=== PATIENT | female | born 1980 ===

== ENCOUNTER → 2021-07-26 10:02 | Outpatient (CLI) | payer OTHER, SELFPAY ==
[2021-07-26 19:08] LABS: Add Manual Diff / Slide Review NO; Basophils Absolute Auto 0 /uL (0-100); Basophils Percent Auto 0.5 % (0-2); Eosinophils Absolute Auto 200 /uL (0-450); Eosinophils Percent Auto 3.1 % (2-4); Hematocrit 38.5 % (36-46); Hemoglobin 12.8 g/dL (12.0-16.0); Lymphocytes Absolute Auto 2100 /uL (1100-4500); Lymphocytes Percent Auto 30.5 % (25-40); Mean Corpuscular HGB Conc 33.2 % (30-36); Mean Corpuscular Hemoglobin 27.4 PG (26-34); Mean Corpuscular Volume 82.6 fL (80-100); Monocytes Absolute Auto 400 /uL (0-900); Monocytes Percent Auto 5.3 % (3-14); Neutrophils Absolute Auto 4100 /uL (1500-7000); Neutrophils Percent Auto 60.6 % (50-75); Platelet Count 369 X10^3/uL (150-400); Red Blood Cell Count 4.66 X10^6/uL (4.0-5.2); Red Cell Distribution Width 13.7 % (11.6-14.8); White Blood Cell Count 6.8 X10^3/uL (4.5-11.0)
[2021-07-26 19:32] LABS: Alanine Aminotransferase 12 IU/L (<35); Albumin 3.6 g/dL (3.5-5.0); Albumin Globulin Ratio 1.3 (1.0-2.8); Alkaline Phosphatase 93 U/L (38-126); Aspartate Aminotransferase 20 IU/L (14-36); BUN Creatinine Ratio 20.3 (6-22); Bilirubin Total 0.4 mg/dL (0.2-1.3); Blood Urea Nitrogen 13 mg/dL (7-17); Calcium 9.2 mg/dL (8.4-10.2); Carbon Dioxide 27 mmol/L (22-32); Chloride 106 mmol/L (98-107); Cholesterol 180 mg/dL (140-199); Estimated Glomerular Filt Rate > 60.0 mL/min (>60); Globulin 2.8 g/dL (1.7-4.1); Glucose 99 mg/dL (70-100); HDL Cholesterol 75 mg/dL (40-60); HEMOLYSIS < 15 (0-50); LDL Cholesterol Calculated 80 mg/dL (<100); Potassium 4.2 mmol/L (3.4-5.1); Sodium 134 mmol/L (137-145); Total Protein 6.4 g/dL (6.3-8.2); Triglycerides 127 mg/dL (35-150)
== END ==
PROVIDERS: PCP Physician Assistant; Visit Provider Physician Assistant
DX: E78.5 Hyperlipidemia, unspecified (principal); Z79.899 Other long term (current) drug therapy
CPT/HCPCS: 80053; 80061; 85025

== ENCOUNTER → 2021-08-30 13:41 | Outpatient (CLI) | payer OTHER, SELFPAY ==
[2021-08-30 19:04] LABS: Add Manual Diff / Slide Review NO; Basophils Absolute Auto 0 /uL (0-100); Basophils Percent Auto 0.6 % (0-2); Eosinophils Absolute Auto 100 /uL (0-450); Eosinophils Percent Auto 1.5 % (2-4); Hematocrit 38.2 % (36-46); Lymphocytes Absolute Auto 2900 /uL (1100-4500); Lymphocytes Percent Auto 41.4 % (25-40); Mean Corpuscular Hemoglobin 27.7 PG (26-34); Mean Corpuscular Volume 81.4 fL (80-100); Monocytes Absolute Auto 300 /uL (0-900); Monocytes Percent Auto 4.3 % (3-14); Neutrophils Absolute Auto 3600 /uL (1500-7000); Neutrophils Percent Auto 52.2 % (50-75); Platelet Count 369 X10^3/uL (150-400); Red Blood Cell Count 4.69 X10^6/uL (4.0-5.2); Red Cell Distribution Width 13.1 % (11.6-14.8)
[2021-08-30 19:25] LABS: Alanine Aminotransferase 16 IU/L (<35); Albumin 3.9 g/dL (3.5-5.0); Albumin Globulin Ratio 1.3 (1.0-2.8); Alkaline Phosphatase 94 U/L (38-126); Aspartate Aminotransferase 22 IU/L (14-36); BUN Creatinine Ratio 18.3 (6-22); Bilirubin Total 0.2 mg/dL (0.2-1.3); Blood Urea Nitrogen 13 mg/dL (7-17); C-Reactive Protein Quant 1.5 mg/dL (<1.0); Calcium 9.5 mg/dL (8.4-10.2); Carbon Dioxide 24 mmol/L (22-32); Chloride 105 mmol/L (98-107); Estimated Glomerular Filt Rate > 60.0 mL/min (>60); Globulin 2.9 g/dL (1.7-4.1); Glucose 108 mg/dL (70-100); HEMOLYSIS < 15 (0-50); Potassium 4.2 mmol/L (3.4-5.1); Sodium 137 mmol/L (137-145); Total Protein 6.8 g/dL (6.3-8.2)
[2021-08-30 19:27] LABS: Protein (Total) Urine Random < 5 mg/dL (0-12)
[2021-08-30 19:28] LABS: Rheumatoid Factor < 8.6 IU/mL (<12.0)
[2021-08-30 19:35] LABS: Appearance Urine UA CLEAR; Bilirubin Urine UA NEGATIVE (NEGATIVE); Color Urine UA YELLOW; Glucose Urine UA NEGATIVE (Negative); Ketones Urine UA NEGATIVE (NEGATIVE); Leukocyte Esterase Urine UA NEGATIVE (NEGATIVE); Nitrite Urine UA NEGATIVE (Negative); Occult Blood Urine UA 1+ (Negative); Protein Urine UA NEGATIVE (Negative); Urobilinogen Urine UA 0.2 E.U./dL (0.2)
[2021-08-30 19:38] LABS: pH Urine UA 5.5 (4.5-8.0)
[2021-08-30 19:40] LABS: HCG Quantitative /Beta subunit < 2.4 mIU/mL
[2021-08-30 19:59] LABS: Erythrocyte Sedimentation Rate 17 MM/HR (0-20)
[2021-08-30 20:00] LABS: RBC Urine 1-5/HPF (0-5/HPF)
[2021-08-30 20:01] LABS: Bacteria Urine Few (2-10); Culture Indicated Urine Specimen Cultured; Squamous Epithelial Cell Urine 0-1 /HPF (0-5/HPF); WBC Urine 0-1/HPF (0-5/HPF)
[2021-08-30 20:04] LABS: Hep C Virus Ab w/Reflex Quant NEGATIVE s/c (NEGATIVE); Hepatitis B Surface Antigen NEGATIVE s/c (NEGATIVE)
[2021-09-01 10:04] LABS: QuantiFERON Mitogen Value >10.00 IU/mL (.); QuantiFERON Nil Value 0.01 IU/mL (.); QuantiFERON TB Gold Plus Negative (Negative); QuantiFERON TB1 Ag Value 0.02 IU/mL (.); QuantiFERON TB2 Ag Value 0.01 IU/mL (.)
[2021-09-02 12:36] LABS: Alpha-1 Globulin, Ur 7.4 % (.); Beta Globulin, Ur 37.4 % (.); Gamma Globulin, Ur 19.6 % (.); M-Spike % Not Observed % (Not Observed); Urine Total Protein 4.1 mg/dL (Not Estab.)
[2021-09-02 14:13] LABS: Albumin 3.4 g/dL (2.9-4.4); Alpha-1-Globulin 0.2 g/dL (0.0-0.4); Alpha-2-Globulin 0.8 g/dL (0.4-1.0); Gamma Globulin 1.1 g/dL (0.4-1.8); Globulin Total 3.3 g/dL (2.2-3.9); Protein, Total 6.7 g/dL (6.0-8.5)
[2021-09-02 21:15] LABS: CCP Antibodies IgG/IgA 2 units (0-19)
[2021-09-06 13:10] LABS: Antimyeloperoxidase AB <9.0 U/mL (0.0-9.0); Antiproteinase 3 AB <3.5 U/mL (0.0-3.5); Atypical P-ANCA Titer <1:20 titer (Neg:<1:20); C-ANCA Titer <1:20 titer (Neg:<1:20); P-ANCA Titer <1:20 titer (Neg:<1:20)
== END ==
PROVIDERS: PCP Physician Assistant; Visit Provider Nurse Practitioner
DX: M06.4 Inflammatory polyarthropathy (principal)
CPT/HCPCS: 80053; 81001; 83520; 84155; 84156; 84165; 84166; 84550; 84702; 85025; 85651; 86038; 86140; 86200; 86256; 86430; 86480; 86803; 87086; 87340

== ENCOUNTER → 2021-12-30 12:05 | Outpatient (CLI) | payer OTHER, SELFPAY ==
[2021-12-30 20:15] LABS: Add Manual Diff / Slide Review NO; Basophils Absolute Auto 100 /uL (0-100); Basophils Percent Auto 0.6 % (0-2); Eosinophils Absolute Auto 100 /uL (0-450); Eosinophils Percent Auto 1.5 % (2-4); Hematocrit 40.6 % (36-46); Hemoglobin 13.6 g/dL (12.0-16.0); Lymphocytes Absolute Auto 3500 /uL (1100-4500); Lymphocytes Percent Auto 39.2 % (25-40); Mean Corpuscular HGB Conc 33.6 % (30-36); Mean Corpuscular Hemoglobin 27.7 PG (26-34); Mean Corpuscular Volume 82.5 fL (80-100); Monocytes Absolute Auto 500 /uL (0-900); Neutrophils Absolute Auto 4800 /uL (1500-7000); Neutrophils Percent Auto 52.7 % (50-75); Platelet Count 407 X10^3/uL (150-400); Red Blood Cell Count 4.92 X10^6/uL (4.0-5.2); Red Cell Distribution Width 13.5 % (11.6-14.8)
[2021-12-30 20:35] LABS: Alanine Aminotransferase 14 IU/L (<35); Albumin 4.1 g/dL (3.5-5.0); Albumin Globulin Ratio 1.4 (1.0-2.8); Alkaline Phosphatase 108 U/L (38-126); Aspartate Aminotransferase 21 IU/L (14-36); BUN Creatinine Ratio 17.1 (6-22); Bilirubin Total 0.3 mg/dL (0.2-1.3); Blood Urea Nitrogen 13 mg/dL (7-17); C-Reactive Protein Quant 2.1 mg/dL (<1.0); Calcium 9.2 mg/dL (8.4-10.2); Carbon Dioxide 25 mmol/L (22-32); Chloride 106 mmol/L (98-107); Estimated Glomerular Filt Rate > 60 mL/min (>60); Glucose 87 mg/dL (70-100); HEMOLYSIS < 15 (0-50); Potassium 4.7 mmol/L (3.4-5.1); Sodium 136 mmol/L (137-145); Total Protein 7.1 g/dL (6.3-8.2)
[2021-12-30 20:53] LABS: Erythrocyte Sedimentation Rate 17 MM/HR (0-20)
== END ==
PROVIDERS: PCP Physician Assistant; Visit Provider Internal Medicine Rheumatology
DX: H20.9 Unspecified iridocyclitis (principal); Z79.899 Other long term (current) drug therapy
CPT/HCPCS: 80053; 85025; 85651; 86140

== ENCOUNTER → 2022-04-05 15:08 | Outpatient (CLI) | payer OTHER, SELFPAY ==
[2022-04-05 19:41] LABS: Add Manual Diff / Slide Review NO; Basophils Absolute Auto 100 /uL (0-100); Basophils Percent Auto 0.6 % (0-2); Eosinophils Absolute Auto 100 /uL (0-450); Eosinophils Percent Auto 1.1 % (2-4); Hematocrit 37.9 % (36-46); Hemoglobin 12.8 g/dL (12.0-16.0); Lymphocytes Absolute Auto 3000 /uL (1100-4500); Lymphocytes Percent Auto 37.2 % (25-40); Mean Corpuscular HGB Conc 33.8 % (30-36); Mean Corpuscular Hemoglobin 27.5 PG (26-34); Mean Corpuscular Volume 81.5 fL (80-100); Monocytes Absolute Auto 400 /uL (0-900); Monocytes Percent Auto 5.5 % (3-14); Neutrophils Absolute Auto 4500 /uL (1500-7000); Neutrophils Percent Auto 55.6 % (50-75); Platelet Count 333 X10^3/uL (150-400); Red Blood Cell Count 4.65 X10^6/uL (4.0-5.2); Red Cell Distribution Width 12.8 % (11.6-14.8); White Blood Cell Count 8.1 X10^3/uL (4.5-11.0)
[2022-04-05 20:02] LABS: Alanine Aminotransferase 13 IU/L (<35); Albumin 3.7 g/dL (3.5-5.0); Albumin Globulin Ratio 1.3 (1.0-2.8); Alkaline Phosphatase 108 U/L (38-126); Aspartate Aminotransferase 20 IU/L (14-36); BUN Creatinine Ratio 12.8 (6-22); Bilirubin Total 0.3 mg/dL (0.2-1.3); Blood Urea Nitrogen 10 mg/dL (7-17); C-Reactive Protein Quant 2.6 mg/dL (<1.0); Carbon Dioxide 24 mmol/L (22-32); Chloride 105 mmol/L (98-107); Estimated Glomerular Filt Rate > 60 mL/min (>60); Globulin 2.9 g/dL (1.7-4.1); Glucose 94 mg/dL (70-100); HEMOLYSIS < 15 (0-50); Potassium 4.2 mmol/L (3.4-5.1); Sodium 135 mmol/L (137-145); Total Protein 6.6 g/dL (6.3-8.2)
[2022-04-05 20:05] LABS: Erythrocyte Sedimentation Rate 9 MM/HR (0-20)
== END ==
PROVIDERS: Referring Provider Nurse Practitioner; Visit Provider Nurse Practitioner
DX: H20.9 Unspecified iridocyclitis (principal)
CPT/HCPCS: 80053; 85025; 85651; 86140

== ENCOUNTER → 2022-05-05 13:43 | Outpatient (CLI) | payer OTHER, SELFPAY | PROVIDERS: PCP Physician Assistant; Visit Provider Family Medicine | DX: N39.0 Urinary tract infection, site not specified (principal); R35.0 Frequency of micturition | CPT/HCPCS: 87086 ==

== ENCOUNTER → 2022-06-09 12:18 | Outpatient (CLI) | payer OTHER, SELFPAY ==
--- NOTE | 2022-06-09 | DI.US.S_ITS ---
ULTRASOUND OF RIGHT BREAST: 06/09/2022 CLINICAL: Patient returns today to evaluate an asymmetry in the right breast. Comparison is made to exams dated: 06/09/2022 mammogram - [facility] and 05/04/2022 mammogram - outside location. Ultrasound of the right breast was performed on the area of interest. Wren scale images of the real-time examination were reviewed. There is a benign 0.3 cm irregular cyst in the right breast at 3 o'clock middle depth. This irregular cyst is anechoic. This correlates with mammography findings. IMPRESSION: BENIGN There is no sonographic evidence of malignancy. The 0.3 cm irregular cyst in the right breast is benign. Return to annual mammogram screening schedule is recommended. This exam was interpreted at Station ID: [id number]. Electronically Signed By: Pennie berumen/natasha:06/09/2022 13:10:52 letter sent: Normal Exam Ultrasound BI-RADS: 2 Benign
--- NOTE | 2022-06-09 | DI.MG.S_ITS ---
UNILATERAL RIGHT DIGITAL DIAGNOSTIC MAMMOGRAM 3D/2D WITH ADDITIONAL VIEWS: 06/09/2022 CLINICAL: Additional evaluation requested from prior study. Comparison is made to exam dated: 05/04/2022 mammogram - outside location. The right breast is heterogeneously dense, which may obscure small masses (category c / 51-75% glandular tissue). There is a 0.5 cm focal asymmetry in the right breast at 3 o'clock middle depth. This is seen in additional views. No other significant masses or calcifications are seen in the breast. IMPRESSION: INCOMPLETE: NEEDS ADDITIONAL IMAGING EVALUATION The 0.5 cm focal asymmetry in the right breast is indeterminate. A targeted ultrasound of the right breast is recommended and will be performed immediately following this exam. Based on the Tyrer Cuzick model (a risk assessment model) the patient's lifetime risk is 12.3% and her 10 year risk is 2.0%. According to the ACR, ACS, and NCCN guidelines, an annual breast MRI exam along with mammogram is recommended if the patient's lifetime risk is 20% or greater. This exam was interpreted at Station ID: [id number]. NOTE: For mammograms, a report in lay terms will be sent to the patient. Approximately 15% of breast malignancies will not be visualized mammographically. In the management of a palpable breast mass, a negative mammogram must not discourage biopsy of a clinically suspicious lesion. Electronically Signed By: Pennie berumen/:06/09/2022 12:49:51 ACR BI-RADS Category 0: Incomplete 3340F
== END ==
PROVIDERS: PCP Physician Assistant; Referring Provider Physician Assistant; Visit Provider Physician Assistant
DX: R92.8 Other abnormal and inconclusive findings on diagnostic imaging of breast (principal); N64.89 Other specified disorders of breast
CPT/HCPCS: 76642; 77065; G0279

== ENCOUNTER → 2022-07-18 12:15 | Outpatient (CLI) | payer OTHER, SELFPAY ==
--- NOTE | 2022-07-18 12:17 | DI.CT.S_ITS ---
PROCEDURE: CT IVP A/P W/WO INDICATIONS: Hematuria TECHNIQUE: Optional 5 mm thick noncontrast images acquired from the diaphragm to the symphysis pubis. After the administration of intravenous contrast, 5 mm thick images acquired from the diaphragm to the symphysis pubis after a 10-minute delay. 2 mm thick coronal and sagittal reformats were then performed of the kidneys and ureters. For radiation dose reduction, the following was used: automated exposure control, adjustment of mA and/or kV according to patient size. COMPARISON: None. FINDINGS: Image quality: Excellent. Lung bases: Lung bases are clear. Heart size is normal. Urinary system: Both kidneys are normal in size, without hydronephrosis or nephrolithiasis on pre-contrast images. No perinephric fat stranding. There is normal bilateral renal enhancement. Renal calyces appear normal in morphology when filled with contrast. Opacified portions of both ureters demonstrate normal caliber. Bladder wall thickness is normal. No calcified bladder stones. Other solid organs: Liver is normal in size and enhancement. Gallbladder is contracted . Biliary system is non dilated. Pancreas enhances normally. Spleen is normal in size and enhancement. No adrenal nodules. Peritoneum and bowel: Bowel loops demonstrate normal wall thickness and caliber. The appendix is thin walled and gas filled.No free fluid or air. Nodes and vessels: No retroperitoneal or mesenteric adenopathy by size criteria. Aorta and inferior vena cava are normal in size. Abdominal wall: No ventral hernias. Pelvis: No pathologic free pelvic fluid. No inguinal hernias or adenopathy. There is a 5.2 x 5.5 by 5.9 cm circumscribed mass within the right hemipelvis which is comprised of predominantly macroscopic fat with a small amount of enhancing soft tissue present. No calcifications visualized. Bones: No suspicious bony lesions. No vertebral body compression fractures. IMPRESSION: 1. No hydronephrosis, nephrolithiasis, hydroureter, or ureterolithiasis. No bladder calculi or abnormal enhancement of the renal parenchyma. 2. 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 Gynecologic consultation recommended. Additionally, if further evaluation is warranted, gynecologic protocol MRI could be used. 3. No acute intra-abdominal findings. Normal appendix. Dictated by: Pennie Downey M.D. on 07/18/2022 at 13:50 Approved by: Pennie Downey M.D. on 07/18/2022 at 13:59
== END ==
PROVIDERS: PCP Physician Assistant; Referring Provider Urology; Visit Provider Urology
DX: R31.29 Other microscopic hematuria (principal); R35.0 Frequency of micturition; R19.03 Right lower quadrant abdominal swelling, mass and lump
CPT/HCPCS: 74178; Q9967

== ENCOUNTER → 2022-07-19 09:33 | Outpatient (CLI) | payer OTHER, SELFPAY | PROVIDERS: PCP Physician Assistant; Visit Provider Urology | DX: N30.01 Acute cystitis with hematuria (principal); R35.0 Frequency of micturition; R10.2 Pelvic and perineal pain; D36.9 Benign neoplasm, unspecified site; Z87.891 Personal history of nicotine dependence | CPT/HCPCS: 81002; 87086 ==

== ENCOUNTER → 2022-07-28 10:22 | Outpatient (CLI) | payer OTHER, SELFPAY | PROVIDERS: PCP Physician Assistant; Visit Provider Urology | DX: R31.29 Other microscopic hematuria (principal); R35.0 Frequency of micturition | CPT/HCPCS: 52000; 81002; 87086 ==

== ENCOUNTER → 2022-08-23 12:06 | Outpatient (CLI) | payer OTHER, SELFPAY ==
[2022-08-23 19:33] LABS: Add Manual Diff / Slide Review NO; Basophils Absolute Auto 0 /uL (0-100); Basophils Percent Auto 0.6 % (0-2); Eosinophils Absolute Auto 100 /uL (0-450); Eosinophils Percent Auto 1.7 % (2-4); Hematocrit 40.4 % (36-46); Lymphocytes Absolute Auto 2400 /uL (1100-4500); Lymphocytes Percent Auto 32.6 % (25-40); Mean Corpuscular HGB Conc 32.3 % (30-36); Mean Corpuscular Hemoglobin 26.2 PG (26-34); Mean Corpuscular Volume 81.2 fL (80-100); Monocytes Absolute Auto 500 /uL (0-900); Monocytes Percent Auto 7.3 % (3-14); Neutrophils Absolute Auto 4200 /uL (1500-7000); Neutrophils Percent Auto 57.8 % (50-75); Platelet Count 339 X10^3/uL (150-400); Red Blood Cell Count 4.97 X10^6/uL (4.0-5.2); Red Cell Distribution Width 13.2 % (11.6-14.8); White Blood Cell Count 7.3 X10^3/uL (4.5-11.0)
[2022-08-23 19:42] LABS: Alanine Aminotransferase 29 IU/L (<35); Albumin 4.1 g/dL (3.5-5.0); Albumin Globulin Ratio 1.3 (1.0-2.8); Alkaline Phosphatase 142 U/L (38-126); Aspartate Aminotransferase 27 IU/L (14-36); BUN Creatinine Ratio 17.1 (6-22); Bilirubin Total 0.4 mg/dL (0.2-1.3); Blood Urea Nitrogen 13 mg/dL (7-17); C-Reactive Protein Quant 2.2 mg/dL (<1.0); Calcium 9.2 mg/dL (8.4-10.2); Carbon Dioxide 24 mmol/L (22-32); Chloride 102 mmol/L (98-107); Estimated Glomerular Filt Rate > 60 mL/min (>60); Globulin 3.2 g/dL (1.7-4.1); Glucose 97 mg/dL (70-100); HEMOLYSIS < 15 (0-50); Potassium 4.3 mmol/L (3.4-5.1); Sodium 136 mmol/L (137-145); Total Protein 7.3 g/dL (6.3-8.2)
[2022-08-23 20:01] LABS: Erythrocyte Sedimentation Rate 14 MM/HR (0-20)
[2022-08-23 20:26] LABS: Follicle Stimulating Hormone 1.53 mIU/mL
[2022-08-23 20:35] LABS: Hepatitis B Surface Antigen NEGATIVE s/c (NEGATIVE)
[2022-08-23 20:51] LABS: Hep C Virus Ab w/Reflex Quant NEGATIVE s/c (NEGATIVE)
== END ==
PROVIDERS: Obstetrics & Gynecology; PCP Physician Assistant; Visit Provider Physician Assistant
DX: M06.4 Inflammatory polyarthropathy (principal); Z79.899 Other long term (current) drug therapy; Z31.41 Encounter for fertility testing
CPT/HCPCS: 80053; 83001; 85025; 85651; 86140; 86803; 87340

== ENCOUNTER 2022-10-02 09:24 | Day surgery (SDC) | payer OTHER, SELFPAY ==
[2022-09-29 10:53] VITALS: BMI 33.0
--- NOTE | 2022-10-02 | PATH_ITS ---
[facility] Accession Number: [id number] No. of containers..01 Tissue . 01 Material submitted: . fallopian tube - RIGHT FALLOPIAN TUBE AND OVARY WITH DERMOID TUMOR . 01 Diagnosis: A. Right Fallopian Tube and Ovary, Right Salpingo-Oophorectomy: Mature cystic teratoma of the ovary. No evidence of malignancy. Fallopian tube within normal limits. MRV 10/06/2022 1804 Local . 01 Electronically signed: . Karen Red MD, Pathologist NPI- [id number] . 01 Gross description: . Received in formalin, labeled right fallopian tube and ovary with dermoid tumor is a previously partially opened cystic ovary with attached fallopian tube. The cystic ovary measures 5.5 x 5.0 x 1.8 cm and has a ponce-trejo wrinkled serosal surface. The cyst is opened and is filled with bright yellow greasy material admixed with minimal blonde hair. Further sectioning reveals a 2.2 x 1.1 cm cyst within the wall which is filled with hazy colorless translucent gelatinous material. The internal surface of the larger cyst wall is ponce-trejo and wrinkled. There are no papillary excrescences identified. This cyst wall ranges from less than 0.1 cm thick, up to 0.3 cm. The attached fallopian tube is fimbriated and measures 6.5 cm in length by 0.4 cm in diameter. The tube is convoluted. Sectioning reveals a stellate lumen. Beef Farmer sections of the ovary are submitted in A1-A2, and software sales representative sections of the fallopian tube are submitted in A3. ([id number]) /MRV 10/04/2022 1345 Local . 01 Pathologist provided ICD-10: D27.9 . 01 CPT . 228695 Specimen Comment: A courtesy copy of this report has been sent to [phone] Performed at: 01 [facility] [address] [place] [address], [place], [place] [id number] MD Sergio Faust MD Phone: [phone]
[2022-10-02 09:42] VITALS: BMI 33.0
[2022-10-02 09:45] VITALS: BP 117/73; PULSE 80; RESP 16; TEMP 36.6; O2SAT 98
[2022-10-02] MEDS: LACTATED RINGERS 1,000 ML 100 ML IV (09:58)
--- NOTE | 2022-10-02 11:38 | P.HP_ITS ---
History of Present Illness History of Present Illness Date Patient Seen: 10/02/22 Time Patient Seen: 11:39 Chief complaint: Lap R Oophorectomy Narrative: Patient is a 42-year-old who presents for a laparoscopic right salpingo- oophorectomy due to a 6 cm dermoid on the right ovary. Patient History Medical History (Updated 07/19/22 @ 10:17 by Leah Frederick RN) Abnormal Pap smear of cervix Acne (~1993) Acute bilateral low back pain without sciatica Allergic conjunctivitis Allergic rhinitis Allergies (~2006) BMI 34.0-34.9,adult Chicken pox (~1983) Chronic uveitis Class 1 obesity without serious comorbidity in adult Closed fracture of bone of right foot Cystic retinal tuft of left eye Depression (~1999) Dry eyes, bilateral (~2015) Eye inflammation (~2013) Fractures Genital herpes (~2007) GERD without esophagitis (~1999) Headache (~1989) Hemorrhoids, external (~2009) Herpes (~1999) History of tobacco use Human papilloma virus Intermediate uveitis of both eyes Lichen simplex chronicus (~2016) Microscopic hematuria Migraine with aura and without status migrainosus, not intractable (~1994) Neck pain (~2016) Pain of right upper extremity (~2016) Personal history of immunosuppressive therapy PVD (peripheral vascular disease) Recurrent major depressive disorder in partial remission Right forearm pain Barone splints (~2019) Temporomandibular joint dysfunction (~1999) Tension headache Vertigo (~2014) Vulvar ulcer Surgical History Anesthesia History of elbow surgery (~1987) History of foot surgery (~2017) History of umbilical hernia repair (~1983) [place] teeth removed (~1994) Family & Social History Family History Father Diabetes mellitus Mother Hyperlipidemia Mental health problem Sister Lymphoma Cancer Grandfather Cancer Grandmother Breast cancer Hypertension Mental health problem Grandfather Diabetes mellitus Lung cancer Grandmother Diabetes mellitus History of heart disease Parkinson's disease Tobacco & Substance use: Smoking Status Former smoker alcohol intake current alcohol intake frequency a few times a week Substance Use Type does not use Meds Home Medications and Allergies Home Medications Medication Instructions Recorded Confirmed Type L.acid,casei,plant,saliv-B.anim 10 10 cap PO DAILY 07/20/21 10/02/22 History billion cell (2 billion ea) capsule butterbur root extract 50 mg 50 mg PO DAILY 07/20/21 10/02/22 History capsule cholecalciferol (vitamin D3) 10 10 mcg PO DAILY 07/20/21 10/02/22 History mcg (400 unit) capsule famotidine 20 mg tablet (Pepcid) 20 mg PO DAILY 07/20/21 10/02/22 History fexofenadine 180 mg tablet 180 mg PO DAILY 07/20/21 10/02/22 History (Caridad Allergy) fluticasone propionate 50 1 spray intranasal DAILY 07/20/21 10/02/22 History mcg/actuation nasal spray,suspension folic acid 1 mg tablet 1 mg PO DAILY 07/20/21 10/02/22 History magnesium chloride 64 mg 60 mg PO DAILY 07/20/21 10/02/22 History (magnesium chloride) tablet naproxen 375 mg tablet,delayed 375 mg PO BID 07/20/21 10/02/22 History release nystatin 100,000 unit/gram topical 1 applic topical BID 07/20/21 10/02/22 History cream olopatadine 0.1 % eye drops drp EYE-BOTH ONCE 07/20/21 07/28/22 History prochlorperazine maleate 5 mg 5 mg PO TID PRN Vaginal Irritation 07/20/21 10/02/22 History tablet (Compazine) tacrolimus 0.1 % topical ointment 1 applic topical BID 07/20/21 10/02/22 History tizanidine 4 mg capsule (Zanaflex) 4 mg PO Q6H PRN Nausea 07/20/21 10/02/22 History valacyclovir 500 mg tablet 500 mg PO BID 07/20/21 10/02/22 History (Valtrex) methotrexate sodium 2.5 mg tablet 2.5 mg PO QWEEK 03/27/22 10/02/22 History rimegepant 75 mg disintegrating 75 mg PO ONCE PRN Abdominal 03/27/22 10/02/22 History tablet (Nurtec ODT) Discomfort bupropion HCl 300 mg 24 hr tablet, See Rx Instructions .Route 07/26/22 10/02/22 Rx extended release .COMPLEX #30 tabs aspirin 81 mg tablet,delayed 81 mg PO DAILY 07/28/22 10/02/22 History release (Adult Aspirin Regimen) fluoxetine 20 mg capsule See Rx Instructions .Route 07/31/22 10/02/22 Rx .COMPLEX #90 caps etonogestrel 0.12 mg-ethinyl See Rx Instructions .Route 08/15/22 10/02/22 Rx estradiol 0.015 mg/24 hr vaginal .COMPLEX ##3 ring Allergies Allergy/AdvReac Type Severity Reaction Status Date / Time ciprofloxacin [From Cipro] Allergy Mild Vomiting Verified 10/02/22 08:21 clarithromycin [From Biaxin] Allergy Mild Vomiting Verified 10/02/22 08:21 Exam Vital Signs (past 8 hours): - 10/02/22 09:45 Temperature 97.8 F Pulse Rate 80 Respiratory Rate 16 Blood Pressure 117/73 Pulse Oximetry 98 Narrative Exam Narrative: HEENT: No thyromegaly, no anterior cervical or supraclavicular lymphadenopathy. Lungs:Clear to auscultation bilaterally, no wheezes. Cardiovascular: Regular rate and rhythm, no murmurs, rubs, or gallops. Abdomen: Well-healed scar. No hepatosplenomegaly. No masses palpable. External genitalia: Normal Vagina: Normal Cervix: Normal Bimanual exam: 6 Week size anteverted uterus. Mobile. Right adnexal fullness. Extremities: No edema Assessment & Plan Assessment & Plan narrative: Assessment: 42-year-old with a 6 cm right ovarian dermoid Plan: Laparoscopic right salpingo-oophorectomy The risks, benefits, and alternatives to the procedure were explained to the patient. The risks including bleeding, infection, injury to the bowel, bladder, or ureters. She understands these risks and agrees to proceed. She also understands there is a possibility of an open procedure. A full par Q was held and consent form was signed. Time Spent With Patient Time with patient: less than 30 minutes Critical Care time: I spent a total of [] minutes of critical care time on this patient's care tod ay; this time is exclusive of procedural time.
--- NOTE | 2022-10-02 11:41 | PM.PREOP ---
Pre-operative Note COVID-19 Criteria for continued procedure: Non-surgical alternatives not available or appropriate per current SOC Interval Note History & Physical reviewed/Exam performed by Physician: Yes Changes to H&P: No H&P completed within 30 days and has changed as indicated here:: 10/02/22
[2022-10-02] MEDS: BUPIVACAINE 0.5% W/ EPI (PF) 30 ML VIAL INJ (12:39)
--- NOTE | 2022-10-02 12:49 | SUR.OPER ---
Lithotomy on padded OR bed, head on pillow, arms secured on padded arm boards at <90 degrees abduction. Legs secured in padded yellow fins stirrups.
--- NOTE | 2022-10-02 13:11 | P.OP_ITS ---
Operative Date/Time/Diagnoses Date of procedure: 10/02/22 Time of procedure: 13:11 Pre-op diagnosis: Right ovarian dermoid Post-op diagnosis: same Procedure & Clinicians Procedure: Procedures Operation Date: 10/02/22 10:45 Actual Procedure Side Surgeon p Laparoscopic Oophorectomy & salpingectomy w/ removal of dermoid cyst Right Jalyn Hernandez MD Indications: Right ovarian dermoid Surgeon: Jalyn Hernandez Data Entry Specialist: Amara Del Angel Anesthesia Type: General and Local Operative Notes Findings: Normal uterus Normal left tube and ovary 8 cm right ovarian dermoid Normal right tube Normal appendix, gallbladder, and liver Closure Type: primary Specimen(s): right tube & ovary Applied: catheter (In/out at the end of the case with clear yellow urine) Estimated blood loss (mL): 5 Blood products transfused: none Procedure in detail: After informed consent was obtained, the patient was taken to the operating room where she was placed in the dorsal supine position. After adequate general endotracheal anesthesia was achieved, she was placed in the dorsal lithotomy position, and prepped and draped in the usual sterile fashion. A time-out was performed. A bivalve speculum was placed into the vagina and the anterior lip of the cervix was grasped with a single-tooth tenaculum. The cervical os was sequentially dilated until the Zumi uterine manipulator could pass easily into the endometrial cavity. The single-tooth tenaculum was removed from the anterior lip of the cervix. The bivalve speculum was removed from the vagina. Attention was then turned to the abdomen where 6 cc of 0.5% Marcaine with epinephrine were injected in the umbilical fold. A 5 mm incision was made. The Veress needle was placed into the peritoneal cavity, and its placement confirmed by aspiration and drop test. The peritoneal cavity was insufflated with 4.1 L of CO2. The Veress needle was removed, and a 5 mm trocar was placed without difficulty. Two other 5 mm trocars were placed after two 5 mm incisions were made, after 6 cc of 0.5% Marcaine with epinephrine were injected. Two 5 mm trocars were placed under direct visualization. The right ovary and tube were grasped with an atraumatic grasper. Using the power seal, the infundibulopelvic ligament on the right side was cauterized and cut. The mesosalpinx was cauterized and cut. The utero-ovarian vessels were cauterized and cut. 6 cc of 0.5% Marcaine with epinephrine were injected above the pubic symphysis in the midline. A 12 mm incision was made. A 12 mm trocar was placed under direct visualization. A large endobag was placed through the suprapubic trocar and deployed. The right ovary and tube were placed into the bag. The bag was closed under direct visualization. The trocar was removed and the edges of the bag were brought up through the incision. Using S retractors the fascia was visualized and incised 1 cm on either side. The incision was extended bluntly digitally. The dermoid cyst was decompressed using an 18 gauge spinal needle and a 60 cc syringe. Proximally 50 cc of thick yellow fluid was aspirated. The bag was then brought through the incision without difficulty. The fascia was closed on the suprapubic incision using 0 Vicryl in a running fashion. The suprapubic incision was irrigated with normal saline. Two simple interrupted sutures were placed in the subcutaneous layer to reapproximate. The abdomen was re-insufflated with carbon dioxide gas. The pelvis was examined and there was no bleeding noted. The pelvis was irrigated with warm normal saline. Hemostasis was achieved. The instruments were removed from the abdomen. The CO2 was allowed to escape. All of the incisions were closed with 4-0 Monocryl in a subcuticular fashion. Steri strips and Allevyn dressings were placed. The Zumi uterine manipulator was removed from the uterus. Sponge, lap, and instrument counts were correct x2. The patient tolerated the procedure well, and was taken to PACU in stable condition. Complications: none Post-operative Condition: stable Disposition: PACU Plan for aftercare: Home after recovery
[2022-10-02 13:13] VITALS: BP 132/80; PULSE 96; RESP 17; TEMP 36.7; O2SAT 96
[2022-10-02 13:18] VITALS: BP 128/77; PULSE 86; RESP 13; TEMP 36.6; O2SAT 100
[2022-10-02 13:24] VITALS: BP 127/76; PULSE 80; RESP 12; TEMP 36.6; O2SAT 100
[2022-10-02 13:31] VITALS: BP 124/76; PULSE 91; RESP 16; TEMP 36.6; O2SAT 100
[2022-10-02 13:40] VITALS: BP 120/76; PULSE 89; RESP 15; TEMP 36.6; O2SAT 99
[2022-10-02] MEDS: OXYCODONE/ACETAMINOPHEN 5/325 TABLET 1 TAB PO (14:01)
== END 2022-10-02 14:00 | disposition home or self-care (01) ==
PROVIDERS: PCP Physician Assistant; Referring Provider Obstetrics & Gynecology; Visit Provider Obstetrics & Gynecology
PROC: (CPT 58661; principal; 2022-10-02 10:45)
DX: D27.0 Benign neoplasm of right ovary (principal)
CPT/HCPCS: 58661; 81025; J1100; J1885; J2250; J2405; J2704; J3010

== ENCOUNTER → 2022-10-12 11:48 | Outpatient (CLI) | payer OTHER, SELFPAY | PROVIDERS: PCP Physician Assistant; Visit Provider Urology | DX: R31.29 Other microscopic hematuria (principal); R35.0 Frequency of micturition; Z87.891 Personal history of nicotine dependence | CPT/HCPCS: 81002; 87086 ==

== ENCOUNTER → 2022-11-16 12:15 | Outpatient (CLI) | payer OTHER, SELFPAY ==
[2022-11-16 20:05] LABS: Add Manual Diff / Slide Review NO; Basophils Absolute Auto 0 /uL (0-100); Basophils Percent Auto 0.6 % (0-2); Eosinophils Absolute Auto 200 /uL (0-450); Hematocrit 39.9 % (36-46); Hemoglobin 13.3 g/dL (12.0-16.0); Lymphocytes Absolute Auto 2600 /uL (1100-4500); Lymphocytes Percent Auto 31.8 % (25-40); Mean Corpuscular HGB Conc 33.4 % (30-36); Mean Corpuscular Hemoglobin 27.2 PG (26-34); Mean Corpuscular Volume 81.4 fL (80-100); Monocytes Absolute Auto 400 /uL (0-900); Monocytes Percent Auto 5.5 % (3-14); Neutrophils Absolute Auto 5000 /uL (1500-7000); Neutrophils Percent Auto 60.1 % (50-75); Platelet Count 400 X10^3/uL (150-400); Red Blood Cell Count 4.91 X10^6/uL (4.0-5.2); Red Cell Distribution Width 13.5 % (11.6-14.8); White Blood Cell Count 8.2 X10^3/uL (4.5-11.0)
[2022-11-16 20:24] LABS: Alanine Aminotransferase 19 IU/L (<35); Albumin 3.6 g/dL (3.5-5.0); Albumin Globulin Ratio 1.2 (1.0-2.8); Alkaline Phosphatase 100 U/L (38-126); Aspartate Aminotransferase 22 IU/L (14-36); BUN Creatinine Ratio 17.1 (6-22); Bilirubin Total 0.2 mg/dL (0.2-1.3); Blood Urea Nitrogen 12 mg/dL (7-17); C-Reactive Protein Quant 1.9 mg/dL (<1.0); Calcium 9.3 mg/dL (8.4-10.2); Carbon Dioxide 24 mmol/L (22-32); Chloride 104 mmol/L (98-107); Estimated Glomerular Filt Rate > 60 mL/min (>60); Glucose 111 mg/dL (70-100); HEMOLYSIS < 15 (0-50); Potassium 4.6 mmol/L (3.4-5.1); Sodium 136 mmol/L (137-145); Total Protein 6.6 g/dL (6.3-8.2)
[2022-11-16 20:28] LABS: Erythrocyte Sedimentation Rate 11 MM/HR (0-20)
== END ==
PROVIDERS: PCP Physician Assistant; Visit Provider Internal Medicine Rheumatology
DX: H20.9 Unspecified iridocyclitis (principal); Z79.899 Other long term (current) drug therapy
CPT/HCPCS: 80053; 85025; 85651; 86140

== ENCOUNTER → 2022-12-27 10:51 | Outpatient (CLI) | payer OTHER, SELFPAY | PROVIDERS: PCP Physician Assistant; Visit Provider Physician Assistant | DX: N76.0 Acute vaginitis (principal) | CPT/HCPCS: 87798; 87801 ==

== ENCOUNTER → 2023-04-13 15:55 | Outpatient (CLI) | payer OTHER, SELFPAY | PROVIDERS: PCP Physician Assistant; Visit Provider Urology | DX: R35.0 Frequency of micturition (principal) | CPT/HCPCS: 51798; 81002; 87086; 99213 ==

== ENCOUNTER → 2023-07-13 15:58 | Outpatient (CLI) | payer OTHER, SELFPAY ==
--- NOTE | 2023-07-13 15:59 | DI.MG.S_ITS ---
BILATERAL DIGITAL SCREENING MAMMOGRAM 3D/2D WITH CAD: 07/13/2023 CLINICAL: Routine screening. Family history of breast cancer. Comparison is made to exams dated: 06/09/2022 mammogram - [facility] and 05/04/2022 mammogram [facility]. There are scattered areas of fibroglandular density in both breasts (category b / 25%-50% glandular tissue). Current study was also evaluated with a Computer Aided Detection (CAD) system. No significant masses, calcifications, or other findings are seen in either breast. IMPRESSION: NEGATIVE There is no mammographic evidence of malignancy. A 1 year screening mammogram is recommended. Based on the Tyrer Cuzick model (a risk assessment model) the patient's lifetime risk is 8.5% and her 10 year risk is 1.4%. According to the ACR, ACS, and NCCN guidelines, an annual breast MRI exam along with mammogram is recommended if the patient's lifetime risk is 20% or greater. This exam was interpreted at Station ID: [id number]. NOTE: For mammograms, a report in lay terms will be sent to the patient. Approximately 15% of breast malignancies will not be visualized mammographically. In the management of a palpable breast mass, a negative mammogram must not discourage biopsy of a clinically suspicious lesion. Electronically Signed By: Pura Aquino M.D., PH.D rodolfo/natasha:07/14/2023 23:14:05 letter sent: Normal Exam ACR BI-RADS Category 1: Negative [id number]
== END ==
PROVIDERS: PCP Physician Assistant; Referring Provider Physician Assistant; Visit Provider Physician Assistant
DX: Z12.31 Encounter for screening mammogram for malignant neoplasm of breast (principal); Z80.3 Family history of malignant neoplasm of breast
CPT/HCPCS: 77063; 77067

== ENCOUNTER → 2023-08-15 09:13 | Outpatient (CLI) | payer OTHER, SELFPAY | PROVIDERS: PCP Physician Assistant; Visit Provider Urology | DX: R31.29 Other microscopic hematuria (principal); R33.9 Retention of urine, unspecified; Z87.440 Personal history of urinary (tract) infections; Z87.891 Personal history of nicotine dependence | CPT/HCPCS: 51798; 81002; 87086 ==

== ENCOUNTER → 2023-10-31 11:10 | Outpatient (CLI) | payer OTHER, SELFPAY ==
[2023-10-31 18:46] LABS: Add Manual Diff / Slide Review NO; Basophils Absolute Auto 0 /uL (0-100); Basophils Percent Auto 0.4 % (0-2); Eosinophils Absolute Auto 100 /uL (0-450); Eosinophils Percent Auto 1.7 % (2-4); Hematocrit 40.1 % (36-46); Hemoglobin 13.3 g/dL (12.0-16.0); Lymphocytes Absolute Auto 2300 /uL (1100-4500); Lymphocytes Percent Auto 27.9 % (25-40); Mean Corpuscular HGB Conc 33.2 % (30-36); Mean Corpuscular Hemoglobin 26.5 PG (26-34); Mean Corpuscular Volume 79.9 fL (80-100); Monocytes Absolute Auto 300 /uL (0-900); Monocytes Percent Auto 4.1 % (3-14); Neutrophils Absolute Auto 5400 /uL (1500-7000); Neutrophils Percent Auto 65.9 % (50-75); Platelet Count 381 X10^3/uL (150-400); Red Blood Cell Count 5.01 X10^6/uL (4.0-5.2); Red Cell Distribution Width 13.7 % (11.6-14.8); White Blood Cell Count 8.2 X10^3/uL (4.5-11.0)
[2023-10-31 19:05] LABS: Alanine Aminotransferase 15 IU/L (<35); Albumin 3.7 g/dL (3.5-5.0); Albumin Globulin Ratio 1.2 (1.0-2.8); Alkaline Phosphatase 113 U/L (38-126); Aspartate Aminotransferase 23 IU/L (14-36); BUN Creatinine Ratio 16.4 (6-22); Bilirubin Total 0.5 mg/dL (0.2-1.3); Blood Urea Nitrogen 12 mg/dL (7-17); Calcium 9.2 mg/dL (8.4-10.2); Carbon Dioxide 23 mmol/L (22-32); Chloride 106 mmol/L (98-107); Estimated Glomerular Filt Rate > 60 mL/min (>60); Globulin 3.1 g/dL (1.7-4.1); Glucose 125 mg/dL (70-100); HEMOLYSIS < 15 (0-50); Potassium 4.3 mmol/L (3.4-5.1); Sodium 135 mmol/L (137-145); Total Protein 6.8 g/dL (6.3-8.2)
[2023-10-31 19:43] LABS: TSH w/ Reflex to FT4 0.83 uIU/mL (0.47-4.68)
[2023-10-31 19:51] LABS: Vitamin B12 317 pg/mL (239-931)
[2023-10-31 20:09] LABS: Hemoglobin A1C% w Est Avg Glu 5.7 % (4.0-6.0)
== END ==
PROVIDERS: PCP Physician Assistant; Visit Provider Physician Assistant
DX: Z79.899 Other long term (current) drug therapy (principal); R53.83 Other fatigue; Z83.3 Family history of diabetes mellitus; Z13.1 Encounter for screening for diabetes mellitus; Z13.6 Encounter for screening for cardiovascular disorders
CPT/HCPCS: 80053; 82306; 82607; 83036; 84443; 85025

== ENCOUNTER → 2023-11-08 10:42 | Outpatient (CLI) | payer OTHER, SELFPAY ==
[2023-11-08 22:08] LABS: Cholesterol 198 mg/dL (140-199); HDL Cholesterol 65 mg/dL (40-60); LDL Cholesterol Calculated 107 mg/dL (<100); Triglycerides 128 mg/dL (35-150)
== END ==
PROVIDERS: PCP Physician Assistant; Visit Provider Physician Assistant
DX: Z13.6 Encounter for screening for cardiovascular disorders (principal); Z13.1 Encounter for screening for diabetes mellitus; R53.83 Other fatigue; Z79.899 Other long term (current) drug therapy
CPT/HCPCS: 80061

== ENCOUNTER → 2024-02-29 13:40 | Outpatient (CLI) | payer OTHER, SELFPAY ==
--- NOTE | 2024-02-29 13:42 | DI.ECHO.S_ITS ---
[place] [facility] : : [address] : : [place] : : [id number] : : Phone: [phone] Echocardiogram Report + + :Name: ALYSON MIMS Study Date: 02/29/2024 Height: 70 in : :Hospital ReadingLocation: Weight: 250 lb : : Gender: Female BSA: 2.3 m2 : :: 1980 Age: 43 yrs BP: 113/78 mmHg: :Reason For Study: FATIGUE AND MURMUR : :Ordering Physician: WILLIS ADEN Performed By: Brenda Delcid : :Referring: WILLIS ADEN : + + Interpretation Summary The ejection fraction is estimated to be 60-65%. The right ventricle is normal in size and function. The right ventricular systolic pressure is estimated to be at least 24 mmHg based on an estimated right atrial pressure of 3 mm Hg. No significant valvular abnormality. Procedure: A two-dimensional transthoracic echocardiogram with color flow and Doppler was performed. The study quality was technically adequate. There is no prior echocardiogram noted for this patient. The patient was in sinus rhythm with heart rates between 70-89 bpm during the exam. Left Ventricle: The left ventricle is normal in size and wall thickness. The ejection fraction is estimated to be 60-65%. Left ventricular wall motion is normal. Diastolic parameters suggest probable normal left ventricular diastolic function and normal filling pressures. Right Ventricle: The right ventricle is normal in size and function. Atria: The left atrial size is normal. Right atrial size is normal. There is no Doppler evidence for an interatrial shunt. Mitral Valve: The mitral valve is normal in structure and function. There is no mitral regurgitation noted. Aortic Valve: The aortic valve is trileaflet. The aortic valve opens well. There is no aortic valve stenosis. No aortic regurgitation is present. Tricuspid Valve: The tricuspid valve is normal in structure and function. There is trace tricuspid regurgitation. The right ventricular systolic pressure is estimated to be at least 24 mmHg based on an estimated right atrial pressure of 3 mm Hg. Pulmonic Valve: The pulmonic valve leaflets are thin and pliable; valve motion is normal. There is trace pulmonic regurgitation. Great Vessels: The aortic root is normal size. The dimensions of the ascending aorta are normal. The IVC is of normal diameter and collapses greater than 50% with a sniff. This suggests a low right atrial pressure of 3 mm Hg. Pericardium/ Pleura There is no pericardial effusion. There is no pleural effusion. MMode/2D Measurements & Calculations LVIDd: 4.9 cm LVOT diam: 2.0 cm LVIDs: 3.1 cm Ao root diam: 2.2 cm FS: 36.5 % asc Aorta Diam: 2.8 cm EPSS: 0.42 cm Ao Arch Diam (Prox Trans): 2.7 cm IVSd: 0.89 cm LVPWd: 0.73 cm LV augustin. diameter/BSA (cm/m^2): 2.2 LV sys. diameter/BSA (cm/m^2): 1.4 LA A2 area: 17.8 cm2 RA long axis: 4.8 cm LA A4 area: 13.9 cm2 RA area: 13.4 cm2 LA length (vol): 5.4 cm RA vol: 32.0 ml LA vol: 38.9 ml RA : 13.9 ml/m2 LA vol index: 16.9 ml/m2 IVC diam: 1.6 cm RVD1 (basal): 3.2 cm TAPSE: 1.9 cm Doppler Measurements & Calculations Ao V2 max: 189.9 cm/sec LVOT Max Aurelio: 111.9 cm/sec Ao V2 mean: 127.2 cm/sec LV V1 max P.0 mmHg Ao max P.4 mmHg LV V1 VTI: 23.0 cm Ao mean P.4 mmHg DERRICK(I,D): 2.0 cm2 Ao V2 VTI: 34.4 cm DERRICK(V,D): 1.8 cm2 sev ratio: 0.67 DERRICK indexed to BSA (cm^2/m^2): 0.88 MV E max aurelio: 87.8 cm/sec TR max aurelio: 231.1 cm/sec MV A max aurelio: 63.6 cm/sec TR max P.4 mmHg MV E/A: 1.4 PA V2 max: 138.1 cm/sec Med Peak E' Aurelio: 11.5 cm/sec PA V2 mean: 93.6 cm/sec E/E' med: 7.6 PA mean P.8 mmHg Lat Peak E' Aurelio: 13.3 cm/sec PA pr(Accel): 27.6 mmHg E/E' lat: 6.6 E/e' average: 7.1 MV dec time: 0.25 sec MVA(VTI): 2.2 cm2 MV V2 mean: 70.8 cm/sec SV(LVOT): 69.3 ml MV mean P.2 mmHg MV V2 VTI: 31.8 cm Reading Physician:PM
== END ==
PROVIDERS: PCP Physician Assistant; Referring Provider Physician Assistant; Visit Provider Physician Assistant
DX: R01.1 Cardiac murmur, unspecified (principal)
CPT/HCPCS: 93306

== ENCOUNTER → 2024-03-03 13:34 | Outpatient (CLI) | payer OTHER, SELFPAY ==
[2024-03-03 20:28] LABS: Add Manual Diff / Slide Review NO; Basophils Absolute Auto 100 /uL (0-100); Basophils Percent Auto 0.7 % (0-2); Eosinophils Absolute Auto 200 /uL (0-450); Eosinophils Percent Auto 2.1 % (2-4); Hematocrit 40.3 % (36-46); Hemoglobin 13.5 g/dL (12.0-16.0); Lymphocytes Absolute Auto 3000 /uL (1100-4500); Lymphocytes Percent Auto 33.6 % (25-40); Mean Corpuscular HGB Conc 33.5 % (30-36); Mean Corpuscular Hemoglobin 27.2 PG (26-34); Mean Corpuscular Volume 81.1 fL (80-100); Monocytes Absolute Auto 500 /uL (0-900); Monocytes Percent Auto 5.9 % (3-14); Neutrophils Absolute Auto 5100 /uL (1500-7000); Neutrophils Percent Auto 57.7 % (50-75); Platelet Count 391 X10^3/uL (150-400); Red Blood Cell Count 4.97 X10^6/uL (4.0-5.2); Red Cell Distribution Width 13.9 % (11.6-14.8); White Blood Cell Count 8.9 X10^3/uL (4.5-11.0)
[2024-03-03 20:39] LABS: Follicle Stimulating Hormone 4.06 mIU/mL
[2024-03-03 20:40] LABS: Free T4, Direct Thyroxine 0.78 ng/dL (0.78-2.19)
[2024-03-03 20:54] LABS: Thyroid Stimulating Hormone 0.215 uIU/mL (0.47-4.68)
[2024-03-03 20:57] LABS: Ferritin 19 ng/mL (6-137)
== END ==
PROVIDERS: PCP Physician Assistant; Visit Provider Nurse Practitioner Adult Health
DX: R53.83 Other fatigue (principal); N93.9 Abnormal uterine and vaginal bleeding, unspecified
CPT/HCPCS: 82397; 82670; 82728; 83001; 84439; 84443; 85025

== ENCOUNTER → 2024-05-19 13:46 | Outpatient (CLI) | payer OTHER, MEDICAID, SELFPAY ==
[2024-05-19 21:34] LABS: Free T3, Triiodothyronine Free 3.34 pg/mL (2.77-5.27); Free T4, Direct Thyroxine 0.88 ng/dL (0.78-2.19)
[2024-05-19 21:49] LABS: Thyroid Stimulating Hormone 1.65 uIU/mL (0.47-4.68)
== END ==
PROVIDERS: PCP Physician Assistant; Visit Provider Nurse Practitioner Adult Health
DX: R94.6 Abnormal results of thyroid function studies (principal)
CPT/HCPCS: 84439; 84443; 84481

== ENCOUNTER → 2024-06-26 10:55 | Outpatient (CLI) | payer OTHER, SELFPAY ==
[2024-07-03 12:11] LABS: Fecal Immunochemical Test Negative (Negative)
== END ==
PROVIDERS: PCP Physician Assistant; Referring Provider Physician Assistant; Visit Provider Physician Assistant
DX: Z12.11 Encounter for screening for malignant neoplasm of colon (principal); K92.2 Gastrointestinal hemorrhage, unspecified; Z11.4 Encounter for screening for human immunodeficiency virus [HIV]
CPT/HCPCS: 82274

== ENCOUNTER → 2024-07-14 14:13 | Outpatient (CLI) | payer OTHER, MEDICAID, SELFPAY ==
--- NOTE | 2024-07-14 14:15 | DI.MG.S_ITS ---
BILATERAL DIGITAL SCREENING MAMMOGRAM 3D/2D WITH CAD: 07/14/2024 CLINICAL: Routine screening. Family history of breast cancer. Comparison is made to exams dated: 07/13/2023 mammogram, 06/09/2022 mammogram - [facility], and 05/04/2022 mammogram - outside location. There are scattered areas of fibroglandular density (category b / 25%-50% glandular tissue). Current study was also evaluated with a Computer Aided Detection (CAD) system. No significant masses, calcifications, or other findings are seen in either breast. There has been no significant interval change. IMPRESSION: NEGATIVE There is no mammographic evidence of malignancy. A 1 year screening mammogram is recommended. Based on the Tyrer Cuzick model (a risk assessment model) the patient's lifetime risk is 8.4% and her 10 year risk is 1.5%. According to the ACR, ACS, and NCCN guidelines, an annual breast MRI exam along with mammogram is recommended if the patient's lifetime risk is 20% or greater. This exam was interpreted at Station ID: [id number]. NOTE: For mammograms, a report in lay terms will be sent to the patient. Approximately 15% of breast malignancies will not be visualized mammographically. In the management of a palpable breast mass, a negative mammogram must not discourage biopsy of a clinically suspicious lesion. Electronically Signed By: Pura Aquino M.D., Ph.D. rodolfo/natasha:07/15/2024 07:55:31 letter sent: Normal Exam ACR BI-RADS Category 1: Negative
== END ==
PROVIDERS: PCP Physician Assistant; Referring Provider Physician Assistant; Visit Provider Physician Assistant
DX: Z12.31 Encounter for screening mammogram for malignant neoplasm of breast (principal); Z80.3 Family history of malignant neoplasm of breast
CPT/HCPCS: 77063; 77067

== ENCOUNTER 2024-07-18 14:03 | Day surgery (SDC) | payer OTHER, MEDICAID, SELFPAY ==
[2024-07-18 15:15] VITALS: BP 132/83; PULSE 77; RESP 12; TEMP 36.6; O2SAT 97
--- NOTE | 2024-07-18 15:32 | PM.HP.1 ---
History of Present Illness History of Present Illness Date Patient Seen: 07/18/24 Time Patient Seen: 15:32 Chief complaint: Screening Colonoscopy Narrative: 44-year-old woman here for 1st time screening colonoscopy. No abdominal concerns. No family history of colon cancer. [facility] Medical History (Updated 06/25/24 @ 13:44 by Licha Salamanca PA-C) Breast self examination education, encounter for Thyroid function test abnormal (~02/2024) Menstrual migraine Abnormal uterine bleeding (AUB) History of urinary tract infection Incomplete emptying of bladder History of tobacco use Microscopic hematuria Depression (~1999) Headache (~1989) Fractures Chicken pox (~1983) Allergies (~2006) Eye inflammation (~2013) Vertigo (~2014) Human papilloma virus Herpes (~1999) Abnormal Pap smear of cervix Vulvar ulcer Intermediate uveitis of both eyes Tension headache Temporomandibular joint dysfunction (~1999) Barone splints (~2019) Right forearm pain Recurrent major depressive disorder in partial remission Personal history of immunosuppressive therapy Pain of right upper extremity (~2016) PVD (peripheral vascular disease) Neck pain (~2016) Migraine with aura and without status migrainosus, not intractable (~1994) Lichen simplex chronicus (~2016) Hemorrhoids, external (~2009) Genital herpes (~2007) GERD without esophagitis (~1999) Dry eyes, bilateral (~2015) Cystic retinal tuft of left eye Closed fracture of bone of right foot Class 1 obesity without serious comorbidity in adult Chronic uveitis BMI 34.0-34.9,adult Allergic conjunctivitis Acute bilateral low back pain without sciatica Acne (~1993) Allergic rhinitis Surgical History Anesthesia History of foot surgery (~2017) History of elbow surgery (~1987) [place] teeth removed (~1994) History of umbilical hernia repair (~1983) Family History Father Diabetes mellitus Mother Hyperlipidemia Mental health problem Sister Lymphoma Cancer Grandfather Cancer Grandmother Breast cancer Hypertension Mental health problem Grandfather Diabetes mellitus Lung cancer Grandmother Diabetes mellitus History of heart disease Parkinson's disease Social History Smoking Status: Former smoker alcohol intake: current Meds Home Medications and Allergies Home Medications Medication Instructions Recorded Confirmed Type L.acid,casei,plant,saliv-B.anim 10 10 cap PO DAILY 07/20/21 06/25/24 History billion cell (2 billion ea) capsule butterbur root extract 50 mg 50 mg PO DAILY 07/20/21 06/25/24 History capsule famotidine 20 mg tablet (Pepcid) 20 mg PO DAILY 07/20/21 07/18/24 History fexofenadine 180 mg tablet 180 mg PO DAILY 07/20/21 06/25/24 History ([place] Allergy) fluticasone propionate 50 1 spray intranasal DAILY 07/20/21 06/25/24 History mcg/actuation nasal spray,suspension magnesium chloride 64 mg 60 mg PO DAILY 07/20/21 06/25/24 History (magnesium chloride) tablet naproxen 375 mg tablet,delayed 375 mg PO BID 07/20/21 06/25/24 History release olopatadine 0.1 % eye drops drp EYE-BOTH ONCE 07/20/21 06/25/24 History prochlorperazine maleate 5 mg 5 mg PO TID PRN Vaginal Irritation 07/20/21 06/25/24 History tablet (Compazine) tacrolimus 0.1 % topical ointment 1 applic topical BID 07/20/21 06/25/24 History tizanidine 4 mg capsule (Zanaflex) 4 mg PO Q6H PRN Nausea 07/20/21 06/25/24 History valacyclovir 500 mg tablet 500 mg PO BID 07/20/21 06/25/24 History (Valtrex) rimegepant 75 mg disintegrating 75 mg PO ONCE PRN Abdominal 03/27/22 06/25/24 History tablet (Nurtec ODT) Discomfort aspirin 81 mg tablet,delayed 81 mg PO DAILY 07/28/22 07/18/24 History release (Adult Aspirin Regimen) alclometasone 0.05 % topical cream 1 applic topical BID PRN skin 02/26/23 06/25/24 Rx irritation #15 grams nystatin 100,000 unit/gram topical 1 applic topical BID #15 grams 02/26/23 06/25/24 Rx cream diclofenac sodium 3 % topical gel 1 applic topical BID foot pain 03/29/23 06/25/24 Rx #100 grams galcanezumab-gnlm 120 mg/mL 120 mg SUBCUT Migraine prevention 04/02/23 06/25/24 History subcutaneous pen injector (Emgality Pen) bupropion HCl 150 mg 24 hr tablet, 150 mg PO QAM #90 tabs 07/25/23 06/25/24 Rx extended release bupropion HCl 300 mg 24 hr tablet, See Rx Instructions .Route 07/25/23 06/25/24 Rx extended release .COMPLEX #90 tabs nitrofurantoin 100 mg PO BID #10 caps 12/21/23 06/25/24 Rx monohydrate/macrocrystals 100 mg capsule (Macrobid) fluoxetine 20 mg capsule 60 mg (3 x 20 mg) PO DAILY #270 04/28/24 07/18/24 Rx caps etonogestrel 0.12 mg-ethinyl See Rx Instructions .Route 05/22/24 06/25/24 Rx estradiol 0.015 mg/24 hr vaginal .COMPLEX ##3 ring peg 3350-electrolytes 236 240 ml PO Q10M #4,000 mL 07/01/24 Rx gram-22.74 gram-6.74 gram-5.86 gram solution (Golytely) Allergies Allergy/AdvReac Type Severity Reaction Status Date / Time ciprofloxacin [From Cipro] Allergy Mild Vomiting Verified 07/18/24 15:09 clarithromycin [From Biaxin] Allergy Mild Vomiting Verified 07/18/24 15:09 Exam Vital Signs (past 8 hours): - 07/18/24 15:15 Temperature 97.9 F Pulse Rate 77 Respiratory Rate 12 Blood Pressure 132/83 Pulse Oximetry 97 Oxygen Delivery Method Room Air Oxygen Delivery Method Room Air Narrative Exam Narrative: General adult woman alert oriented no acute distress Chest nonlabored respiration Extremities warm well perfused Assessment & Plan Assessment & Plan narrative: The patient requires colorectal screening and colonoscopy is recommended. Technical details were discussed. Risks, benefits, alternatives explained. Risks including but not limited to myocardial infarction, aspiration, bleeding, pain, missed lesion, incomplete examination, need for further radiographic studies, intestinal injury, and need for major abdominal surgery were discussed. All questions were answered to their satisfaction, and they are in agreement with this plan. Time-Based Coding :: [TOTAL MINUTES] spent with patient and on the chart (including review of chart, obtaining history, exam, reviewing outside data, placing orders, documenting exam and treatment plan, and counseling patient) on [DATE].
--- NOTE | 2024-07-18 15:39 | P.OP.COLON_ITS ---
Operative Date/Time/Diagnoses Date of procedure: 07/18/24 Time of procedure: 15:39 Pre-op diagnosis: Colorectal screening Procedure & Clinicians Study performed: Colonoscopy screening Same procedure as scheduled: Yes Indications: Screening Surgeon: Darinel Del Angel Procedure Notes Procedure in detail: The history and physical was performed/updated and the patient is ASA class is 2. The procedure was discussed in detail with the patient. Potential risks complications including infection, bleeding, missed diagnosis, perforation, need for surgery, and were explained. Their questions were answered and informed consent was obtained. Patient was brought to the procedure room and placed standard monitoring equipment. The patient's vital signs were monitored continuously throughout the entire procedure. Prior to starting time-out was performed. The patient was placed in the left lateral recumbent position. Procedural sedation was administered by anesthesia. Examination began with a thorough inspection of the perianal area there was no evidence of fissures, fistulae, external hemorrhoids or cutaneous malignancy. The colonoscopy scope was then placed into the anal canal and was advanced to the cecum, which was identified by the ileocecal valve, the appendiceal orifice and the confluence of the taenia. The scope was then slowly withdrawn examining colon thoroughly in all directions, irrigating it of any residual stool. The scope was retroflexed within the rectum The patient tolerated the procedure well. They will be discharged once criteria are met. The prep was of good/excellent quality. The withdrawl time was 7 minutes. FINDINGS * Internal hemorrhoids Specimen(s): none sent Impression: Hemorrhoids Post-procedure Recommendations: Colonoscopy in 10 years and High fiber diet Disposition: same day surgery
[2024-07-18 15:57] VITALS: BP 141/91; PULSE 74; RESP 16; O2SAT 98
[2024-07-18 16:00] VITALS: BP 141/91; PULSE 78; RESP 16; TEMP 36.2; O2SAT 100
[2024-07-18 16:05] VITALS: BP 145/78; PULSE 72; RESP 16; O2SAT 98
[2024-07-18 16:20] VITALS: BP 145/78; PULSE 82; RESP 15; TEMP 36.7; O2SAT 98
== END 2024-07-18 17:06 | disposition home or self-care (01) ==
PROVIDERS: PCP Physician Assistant; Referring Provider Surgery; Visit Provider Surgery
PROC: 0DJD8ZZ Inspection of Lower Intestinal Tract, Via Natural or Artificial Opening Endoscopic (ICD-10-PCS; CPT 45378; principal; 2024-07-18 15:30)
DX: Z12.11 Encounter for screening for malignant neoplasm of colon (principal); K64.8 Other hemorrhoids
CPT/HCPCS: 45378; J2704

== ENCOUNTER → 2024-08-28 15:29 | Outpatient (CLI) | payer OTHER, SELFPAY | PROVIDERS: PCP Physician Assistant; Visit Provider Urology | DX: Z87.440 Personal history of urinary (tract) infections (principal); R31.29 Other microscopic hematuria; R35.0 Frequency of micturition | CPT/HCPCS: 87086 ==

== ENCOUNTER → 2025-06-25 09:37 | Outpatient (CLI) | payer BC, SELFPAY ==
[2025-06-25 19:11] LABS: Add Manual Diff / Slide Review NO; Hematocrit 41.0 % (36-46); Hemoglobin 13.7 g/dL (12.0-16.0); Lymphocytes Absolute Auto 2200 /uL (1100-4500); Mean Corpuscular HGB Conc 33.4 % (30-36); Mean Corpuscular Hemoglobin 26.9 PG (26-34); Mean Corpuscular Volume 80.6 fL (80-100); Platelet Count 354 X10^3/uL (150-400)
[2025-06-25 19:49] LABS: Alanine Aminotransferase 19 IU/L (<35); Albumin 3.9 g/dL (3.5-5.0); Albumin Globulin Ratio 1.3 (1.0-2.8); Alkaline Phosphatase 103 U/L (38-126); Blood Urea Nitrogen 13 mg/dL (7-17); Calcium 9.0 mg/dL (8.4-10.2); Carbon Dioxide 25 mmol/L (22-32); Chloride 106 mmol/L (98-107); Cholesterol 214 mg/dL (140-199); Estimated Glomerular Filt Rate > 60 mL/min (>60); Globulin 2.9 g/dL (1.7-4.1); Glucose 112 mg/dL (70-99); HDL Cholesterol 71 mg/dL (40-60); HEMOLYSIS < 15 (0-50); Potassium 4.7 mmol/L (3.4-5.1); Sodium 139 mmol/L (137-145); Total Protein 6.8 g/dL (6.3-8.2); Triglycerides 188 mg/dL (35-150)
[2025-06-25 20:14] LABS: TSH w/ Reflex to FT4 0.85 uIU/mL (0.47-4.68)
== END ==
PROVIDERS: PCP Physician Assistant; Visit Provider Physician Assistant
DX: E78.5 Hyperlipidemia, unspecified (principal); R53.83 Other fatigue; R94.6 Abnormal results of thyroid function studies; Z79.899 Other long term (current) drug therapy
CPT/HCPCS: 80053; 80061; 84443; 85025